=== PATIENT | male | born 1975 | race Caucasian/White ===

== ENCOUNTER 2023-12-31 17:14 | Emergency (ER) | payer BC ==
[2023-12-31] MEDS: LORazepam 2 MG/ML SDV IVPUSH ONE (17:30)
[2023-12-31] MEDS ORDERED: Sodium Chloride 0.9% 10 ML Syringe FLUSH PRN (17:31)
[2023-12-31] MEDS: Lactated Ringers 1,000 ML IV ONE (17:31)
[2023-12-31 17:37] LABS: BASOPHILS ABSOLUTE AUTO 0.1 x10^3/uL (0.0-0.2); BASOPHILS PERCENT AUTO 0.7 % (0.2-1.2); EOSINOPHILS PERCENT AUTO 0.4 % (0.0-4.0); HEMATOCRIT 51.4 % (40.0-52.0); HEMOGLOBIN 17.8 g/dL (14.0-18.0); IMMATURE GRAN ABSOLUTE AUTO 0.03 x10^3/uL (0.00-0.07); LYMPHOCYTES ABSOLUTE AUTO 2.5 x10^3/uL (1.0-4.8); LYMPHOCYTES PERCENT AUTO 24.2 % (25.0-50.0); MEAN CORPUSCULAR HEMOGLOBIN 30.5 pg (26.0-32.0); MEAN CORPUSCULAR HGB CONC 34.6 g/dL (32.0-36.0); MONOCYTES ABSOLUTE AUTO 0.9 x10^3/uL (0.0-0.8); MONOCYTES PERCENT AUTO 8.9 % (2.0-11.0); NEUTROPHILS ABSOLUTE AUTO 6.7 x10^3/uL (1.8-7.7); NEUTROPHILS PERCENT AUTO 65.5 % (50.0-80.0); PLATELET COUNT,PLT 364 x10^3/uL (130-400); RED BLOOD CELL COUNT 5.84 x10^6/uL (4.5-6.0); WHITE BLOOD CELL COUNT,WBC 10.3 x10^3/uL (4.0-10.0)
[2023-12-31 18:05] LABS: A/G RATIO 1.15; ALANINE AMINOTRANSFERASE,ALT 38 U/L (16-63); ALBUMIN 4.5 g/dL (3.4-5.0); ALKALINE PHOSPHATASE 90 U/L (46-116); ANION GAP 21.5 mmol/L (5-15); ASPARTATE AMNIOTRANSFERASE,AST 42 U/L (15-37); BILIRUBIN TOTAL 0.6 mg/dL (0.2-1.0); BLOOD UREA NITROGEN,BUN 13 mg/dL (7-18); CALCIUM 9.9 mg/dL (8.5-10.1); CARBON DIOXIDE,CO2 22 mmol/L (21-32); CHLORIDE,CL 100 mmol/L (98-107); CREATININE 1.3 mg/dL (0.70-1.30); ESTIMATED GFR 68 mL/min (>=60); GLUCOSE RANDOM 119 mg/dL (70-99); MAGNESIUM 1.7 mg/dL (1.8-2.4); POTASSIUM,K 3.5 mmol/L (3.5-5.1); PROTEIN TOTAL,TP 8.4 g/dL (6.4-8.2); SODIUM,NA 140 mmol/L (136-145); TSH ULTRASENSITIVE 1.153 uIU/mL (0.358-3.74)
== END 2023-12-31 19:00 ==
LOC: VM.ED 17:14
DX: F41.0 Panic disorder [episodic paroxysmal anxiety] (principal); R06.4 Hyperventilation
CPT/HCPCS: 80053; 83735; 84443; 84484; 85025; 93005; 96361; 96374; 99285; J2060; J7120; 93010; 99284